=== PATIENT | male | born 1995 | race Hispanic/Latino ===

== ENCOUNTER 2024-10-08 20:24 | Emergency (ER) | payer OTHER ==
[2024-10-08] MEDS ORDERED: KETOROLAC 30 MG/ML INJ ONE (21:14)
--- NOTE | 2024-10-08 21:42 | RAD REPORT ---
EXAMINATION: Hand Left 3 View VIEWS: As above CLINICAL INDICATION: Male, 29 years old. PAIN COMPARISON: No prior exam. IMPRESSION: Slightly displaced and angulated fracture at the fourth distal phalangeal tuft. Incomplete fracture at the mid diaphysis of the third middle phalanx.
--- NOTE | 2024-10-08 21:50 | ER ---
Nurse's Notes [facility] Name: Xu Hilton Age: 29 yrs Sex: Male : 1995 Arrival Date: 10/08/2024 Time: 20:24 Bed 2 Private MD: Diagnosis: Tuft fracture of left 3rd and 4th fingers;Subungual hematoma of left third finger;Laceration of nail of left fourth finger Presentation: 10/08 20:32 Chief complaint: Patient states: My fingers got closed in a metal door about 2 hrs ago. bm8 Coronavirus screen: At this time, the client does not indicate any symptoms associated with coronavirus-19. Ebola Screen: Patient negative for fever greater than or equal to 101.5 degrees Fahrenheit, and additional compatible Ebola Virus Disease symptoms Patient denies exposure to infectious person. Patient denies travel to an Ebola-affected area in the 21 days before illness onset. No symptoms or risks identified at this time. Complicating Factors: There are no complicating factors for this patient. Initial Sepsis Screen: Does the patient meet any 2 criteria? No. Patient's initial sepsis screen is negative. Does the patient have a suspected source of infection? No. Patient's initial sepsis screen is negative. Risk Assessment: Do you want to hurt yourself or someone else? Patient reports no desire to harm self or others. Onset of symptoms was October 08, 2024 at 18:00. 20:32 Method Of Arrival: [employer] Enforcement: [place] [employer] bm8 20:32 Acuity: BIN 3 bm8 Triage Assessment: 20:34 General: Appears in no apparent distress. uncomfortable, Behavior is calm, cooperative, bm8 appropriate for age. Pain: Complains of pain in dorsal aspect of distal phalanx of left middle finger, dorsal aspect of middle phalanx of left middle finger, dorsal aspect of distal phalanx of left ring finger, dorsal aspect of middle phalanx of left ring finger and left middle fingernail Pain currently is 7 out of 10 on a pain scale. Quality of pain is described as aching, throbbing. EENT: No deficits noted. No signs and/or symptoms were reported regarding the EENT system. Neuro: No deficits noted. Level of Consciousness is awake, alert, obeys commands, Oriented to person, place, time, situation, Appropriate for age. Cardiovascular: Denies chest pain, Heart tones S1 S2 present Capillary refill < 3 seconds in bilateral fingers Patient's skin is warm and dry. Respiratory: Airway is patent Trachea midline Respiratory effort is even, unlabored, Respiratory pattern is regular, symmetrical. GI: No signs and/or symptoms were reported involving the gastrointestinal system. : No signs and/or symptoms were reported regarding the genitourinary system. Derm: Wound noted left hand Wound is laceration across tips of 3rd and fourth finger on nail side Reports pain that is 7 out of 10 on a pain scale. Musculoskeletal: Injury Description: Laceration sustained to left hand is bleeding moderately. Historical: - Allergies: 20:34 No Known Allergies; bm8 - Home Meds: 20:34 None [Active]; bm8 - PMHx: 20:34 None; bm8 - PSHx: 20:34 Tonsillectomy; bm8 - Immunization history:: Adult Immunizations up to date. - Infectious Disease History:: Denies. - Social history:: Smoking status: Patient denies any tobacco usage or history of. - Family history:: not pertinent. Screenin:37 [facility] ED Fall Risk Assessment (Adult) History of falling in the last 3 months, bm8 including since admission No falls in past 3 months (0 pts) Confusion or Disorientation No (0 pts) Intoxicated or Sedated No (0 pts) Impaired Gait No (0 pts) Mobility Assist Device Used No (0 pt) Altered Elimination No (0 pt) Score/Fall Risk Level 0 - 2 = Low Risk Oriented to surroundings, Maintained a safe environment, Educated pt \T\ family on fall prevention, incl call for assistance when getting out of bed, Assessed \T\ reinforced patient's understanding of fall precautions, Hourly rounding (assess needs \T\ fall precautionary measures) done, Used ambulatory aids as needed (educated on \T\ assisted with), Used gait belt as appropriate. Abuse screen: Denies threats or abuse. Nutritional screening: No deficits noted. Tuberculosis screening: No symptoms or risk factors identified. Assessment: 20:37 Reassessment: see triage assessment. bm8 21:44 Reassessment: Patient appears in no apparent distress at this time. Patient and/or bm8 family updated on plan of care and expected duration. Pain level reassessed. Patient is alert, oriented x 3, equal unlabored respirations, skin warm/dry/pink. Patient states symptoms have improved. 22:00 Reassessment: wound care provided to pt left hand. Cleaned with warm water and soap. bm8 triple antibiotic cream applied directly to wound. 4x4 placed onver wound and then wrapped and secured with kerlix and tape. Vital Signs: 20:32 BP 115 / 93; Pulse 66; Resp 18; Temp 99.1; Pulse Ox 100% ; Weight 68.04 kg; Height 5 bm8 ft. 8 in. ; Pain 7/10; 21:44 BP 152 / 96; Pulse 63; Resp 18; Temp 99; Pulse Ox 100% ; Pain 5/10; bm8 20:32 Body Mass Index 22.81 (68.04 kg, 172.72 cm) bm8 20:32 Pain Scale: Adult bm8 21:44 Pain Scale: Adult bm8 Oar Coma Score: 20:37 Eye Response: spontaneous(4). Motor Response: obeys commands(6). Verbal Response: bm8 oriented(5). Total: 15. 21:44 Eye Response: spontaneous(4). Motor Response: obeys commands(6). Verbal Response: bm8 oriented(5). Total: 15. ED Course: 20:31 Patient arrived in ED. vk 20:31 Oliverio Weaver MD is Attending Physician. rt 20:31 Hitesh Hoffmann, RN is Primary Nurse. bm8 20:34 Triage completed. bm8 20:34 Arm band placed on right wrist. bm8 20:37 Patient has correct armband on for positive identification. Bed in low position. Call bm8 light in reach. Side rails up X2. Adult w/ patient. Client placed on continuous cardiac and pulse oximetry monitoring. NIBP monitoring applied. Pulse ox on. NIBP on. Door closed. Noise minimized. Verbal reassurance given. Head of bed elevated. 20:37 Patient did not have IV access during this emergency room visit. Patient maintains SpO2 bm8 saturation greater than 95% on room air. 21:35 Hand Left 3 View XRAY In Process Unspecified. EDMS 22:00 Provided Education on: post er care and wound care. bm8 22:00 No provider procedures requiring assistance completed. bm8 Administered Medications: 21:18 Drug: Ketorolac IM 30 mg IM once Route: IM; Site: right deltoid; bm8 22:00 Follow up: Response: No adverse reaction bm8 Medication: 20:37 VIS not applicable for this client. bm8 Outcome: 21:49 Discharge ordered by . rt 22:00 Discharged to home ambulatory, bm8 22:00 Condition: stable 22:00 Discharge instructions given to patient, police, Instructed on discharge instructions, follow up and referral plans. the need for transfer, no driving heavy equipment, medication usage, safety practices, Demonstrated understanding of instructions, follow-up care, medications, Prescriptions given X 2, 22:03 Patient left the ED. bm8 Signatures: Dispatcher [employer] [facility] Oliverio Weaver MD MD rt Shannan Noriega Brad, RN RN bm8 Corrections: (The following items were deleted from the chart) 20:34 20:34 PMHx: Unable to Obtain; bm8 bm8
--- NOTE | 2024-10-08 21:50 | EDPHYS ---
Physician Documentation [facility] Name: Xu Hilton Age: 29 yrs Sex: Male : 1995 Arrival Date: 10/08/2024 Time: 20:24 Bed 2 Private MD: ED Physician Oliverio Weaver HPI: 10/08 21:29 This 29 yrs old Male presents to ER via Law Enforcement with complaints of Laceration, rt Finger Injury. 21:29 Patient presents to the ED with an injury to the left middle and ring fingers. Patient rt states that he slammed in a door. He sustained a laceration to the nail of the ring finger as well as bruising underneath the nail of the middle finger. Denies other injury, acute complaints, symptoms are moderate severity, no other aggravating alleviating factors.. Historical: - Allergies: 20:34 No Known Allergies; bm8 - Home Meds: 20:34 None [Active]; bm8 - PMHx: 20:34 None; bm8 - PSHx: 20:34 Tonsillectomy; bm8 - Immunization history:: Adult Immunizations up to date. - Infectious Disease History:: Denies. - Social history:: Smoking status: Patient denies any tobacco usage or history of. - Family history:: not pertinent. ROS: 21:29 Constitutional: Negative for fever, chills, and weight loss, Psych: Negative for rt depression, anxiety, suicide ideation, homicidal ideation, and hallucinations, 21:29 MS/extremity: Positive for Contusion, laceration, 21:29 Skin: Positive for Contusion, laceration, Exam: 21:29 Constitutional: This is a well developed, well nourished patient who is awake, alert, rt and in no acute distress. Head/Face: Normocephalic, atraumatic. Chest/axilla: Normal chest wall appearance and motion. Nontender with no deformity. No lesions are appreciated. Cardiovascular: Regular rate and rhythm with a normal S1 and S2. No gallops, murmurs, or rubs. Normal PMI, no JVD. No pulse deficits. Respiratory: Lungs have equal breath sounds bilaterally, clear to auscultation and percussion. No rales, rhonchi or wheezes noted. No increased work of breathing, no retractions or nasal flaring. Abdomen/GI: Soft, non-tender, with normal bowel sounds. No distension or tympany. No guarding or rebound. No evidence of tenderness throughout. 21:29 Musculoskeletal/extremity: On the left ring finger, there is a laceration involving only the nail horizontally orientated, no active bleeding. There is a subungual hematoma on the middle finger present, no other laceration.. Vital Signs: 20:32 BP 115 / 93; Pulse 66; Resp 18; Temp 99.1; Pulse Ox 100% ; Weight 68.04 kg; Height 5 bm8 ft. 8 in. ; Pain 7/10; 21:44 BP 152 / 96; Pulse 63; Resp 18; Temp 99; Pulse Ox 100% ; Pain 5/10; bm8 20:32 Body Mass Index 22.81 (68.04 kg, 172.72 cm) bm8 20:32 Pain Scale: Adult bm8 21:44 Pain Scale: Adult bm8 Apollo Coma Score: 20:37 Eye Response: spontaneous(4). Motor Response: obeys commands(6). Verbal Response: bm8 oriented(5). Total: 15. 21:44 Eye Response: spontaneous(4). Motor Response: obeys commands(6). Verbal Response: bm8 oriented(5). Total: 15. Procedures: 21:32 Performed Nail trephination. Using electrocautery, the left middle finger was rt trephinated with good return of blood and immediate relief of the patient's symptoms.. MDM: 20:31 Medical Screening Exam initiated rt 21:55 Differential diagnosis: Alan fracture, laceration, subungual hematoma. Data reviewed: rt vital signs, nurses notes, radiologic studies. I considered the following discharge prescriptions or medication management in the emergency department Medications were administered in the Emergency Department. See MAR. Independent interpretation of the following test(s) in the Emergency Department X-Ray: My interpretation is Tuft fracture seen on my interpretation of x-ray images. Counseling: I had a detailed discussion with the patient and/or guardian regarding the historical points, exam findings, and any diagnostic results supporting the discharge/admit diagnosis, radiology results, the need for outpatient follow up. ED course: Do not believe that laceration through the nail is amenable to primary repair, will allow to heal by secondary intention, wounds were dressed.. 10/08 20:34 Order name: Hand Left 3 View XRAY; Complete Time: 21:45 rt 10/08 21:48 Order name: Dressing - Wound; Complete Time: 22:00 rt Administered Medications: 21:18 Drug: Ketorolac IM 30 mg IM once Route: IM; Site: right deltoid; bm8 22:00 Follow up: Response: No adverse reaction bm8 Disposition Summary: 10/08/24 21:49 Discharge Ordered Notes: Location: Home rt Problem: new rt Symptoms: have improved rt Condition: Stable rt Diagnosis - Tuft fracture of left 3rd and 4th fingers rt - Subungual hematoma of left third finger rt - Laceration of nail of left fourth finger rt Followup: rt - With: Private Physician - When: 5 - 6 days - Reason: Discharge Instructions: - Discharge Summary Sheet rt - Finger Fracture, Adult rt - Nonsutured Laceration Care rt - Subungual Hematoma rt Forms: - Medication Reconciliation Form rt - Antibiotic Education rt - Prescription Opioid Use rt - Patient Portal Instructions rt - Leadership Thank You Letter rt Prescriptions: - Cephalexin 500 mg Oral Capsule - take 1 capsule ORAL route every 6 hours for 10 days; 40 capsule; Refills: 0, rt Product Selection Permitted - Ibuprofen 600 mg Oral Tablet - take 1 tablet ORAL route every 6 hours As needed take with food; 30 tablet; rt Refills: 0, Product Selection Permitted Signatures: Dispatcher [employer] Oliverio Keith MD MD rt Hitesh Hoffmann RN RN bm8 Corrections: (The following items were deleted from the chart) 20:34 20:34 PMHx: Unable to Obtain; bm8 bm8
[2024-10-10 23:39] VITALS: O2SAT 100
[2024-10-10 23:41] VITALS: BP 152/96; TEMP 99
== END 2024-10-08 22:03 | disposition home or self-care (01) ==
LOC: ER 20:24
PROC: 0H9QXZZ Drainage of Finger Nail, External Approach (ICD-10-PCS; principal; 2024-10-08)
DX: S62.607A Fracture of unspecified phalanx of left little finger, initial encounter for closed fracture (principal); S62.603A Fracture of unspecified phalanx of left middle finger, initial encounter for closed fracture; S60.132A Contusion of left middle finger with damage to nail, initial encounter; S61.315A Laceration without foreign body of left ring finger with damage to nail, initial encounter
CPT/HCPCS: 96372; 99284